=== PATIENT | female | born 1960 | race Caucasian/White ===

== ENCOUNTER 2019-09-19 10:10 | Inpatient (IN) | payer OTHER ==
[~2019-09-19] VITALS: Ht 175.3 cm; Wt 89.9 kg
--- NOTE | 2019-09-19 10:13 | NUR ---
[id number] c/o L sided headache and nausea and vomiting while in PE class. pt is aaox4, not in respiratory distress, hooked to monitor, kept rested and comfortable.
--- NOTE | 2019-09-19 10:49 | NUR ---
BLOOD DRAWN AND SENT TO LAB.
[2019-09-19] MEDS ORDERED: METOCLOPRAMIDE HCL 10 MG/2 ML VIAL ONE (10:54)
[2019-09-19 10:55] LABS: BASOPHILS % (AUTO) 0.5 % (0.0-2.0); EOSINOPHILS % (AUTO) 1.3 % (0.0-6.0); HEMATOCRIT 41 % (33-45); HEMOGLOBIN 13.9 g/dL (11.5-14.8); LYMPHOCYTES # (AUTO) 1.7 /CMM (0.8-4.8); LYMPHOCYTES % (AUTO) 27.6 % (20.0-44.0); MEAN CORPUSCULAR HGB CONC 34 g/dl (31.0-36.0); MEAN CORPUSCULAR VOLUME 93 fL (82-100); MONOCYTES # (AUTO) 0.3 /CMM (0.1-1.30); NEUTROPHILS # (AUTO) 4.1 /CMM (1.8-8.9); NEUTROPHILS % (AUTO) 65.6 % (43.0-81.0); PLATELET COUNT (AUTO) 285 /CMM (150-450); RED BLOOD CELL COUNT(AUTO) 4.44 MIL/uL (4.0-5.2); WHITE BLOOD COUNT (AUTO) 6.3 K/uL (4.3-11.0)
[2019-09-19] MEDS ORDERED: METOCLOPRAMIDE HCL 10 MG/2 ML VIAL IV ONE (11:00)
[2019-09-19] MEDS ORDERED: IV NS 0.9% 1,000 ML BAG IV ONE (11:00)
--- NOTE | 2019-09-19 11:00 | NUR ---
URINE SPECIMEN COLLECTED AND SENT TO LAB.
[2019-09-19 11:02] LABS: CALCIUM, SERUM 8.9 mg/dL (8.5-10.1); CREATININE 0.7 mg/dL (0.6-1.3); POTASSIUM 3.7 mmol/L (3.5-5.1)
[2019-09-19 11:05] LABS: APPEARANCE,URINE Clear (CLEAR); BILIRUBIN,URINE Negative (NEGATIVE); BLOOD, URINE Trace-intact Ery/uL (NEGATIVE); COLOR,URINE Yellow (YELLOW); KETONES,URINE Negative (NEGATIVE); LEUKOCYTE ESTERASE ,URINE Negative (NEGATIVE); NITRITE, URINE Negative (NEGATIVE); PROTEIN,URINE Negative (NEGATIVE); UGLUCOSE Negative (NEGATIVE); UROBILINOGEN,URINE 0.2 EU/dL (0.2)
[2019-09-19 11:08] LABS: ALBUMIN 3.9 g/dL (3.4-5.0); BILIRUBIN,TOTAL 0.2 mg/dL (0.2-1.0); TOTAL PROTEIN, SERUM 7.5 g/dL (6.4-8.2)
[2019-09-19 11:15] LABS: BACTERIA,URINE None seen /HPF (None Seen); RBC,URINE 0-2 /HPF (0-2); SQUAMOUS EPITHELIAL CELL,UR Few /HPF (None Seen); WBC,URINE 0-2 /HPF (0-3)
--- NOTE | 2019-09-19 11:18 | NUR ---
PT IS WHEELED TO CT SCAN VIA [facility].
[2019-09-19] MEDS ORDERED: IBUPROFEN 600 MG TABLET PO ONE ×2 (13:06→14:00)
[2019-09-19] MEDS ORDERED: ONDANSETRON HCL/PF 4 MG/2 ML VIAL ONE (13:06)
[2019-09-19] MEDS ORDERED: ONDANSETRON HCL/PF - ER 4 MG/2 ML VIAL IV ONE (14:00)
--- NOTE | 2019-09-19 15:09 | NUR ---
AT BEDSIDE FOR LUMBAR PUNCTURE TEST.
--- NOTE | 2019-09-19 15:20 | NUR ---
[facility] CALLED AND WILL SET UP PEER TO PEER.
--- NOTE | 2019-09-19 15:30 | NUR ---
CALLED NURSING SUP FOR TELE BED.
[2019-09-19 15:36] LABS: CSF GLUCOSE 54 mg/dL (40-70); CSF PROTEIN 45.9 mg/dL (15-45)
--- NOTE | 2019-09-19 15:54 | NUR ---
PAGED [facility].
[2019-09-19 16:00] VITALS: BP 117/78
[2019-09-19] MEDS ORDERED: MAG HYDROX/AL HYDROX/SIMETH 30 ML UDC PO PRN (16:30)
[2019-09-19] MEDS ORDERED: ONDANSETRON HCL/PF 4 MG/2 ML VIAL IVP PRN (16:30)
[2019-09-19] MEDS ORDERED: Z GUARD REMEDY 2 OZ OINT TP PRN (16:30)
[2019-09-19] MEDS ORDERED: MAGNESIUM HYDROXIDE 30 ML UDC PO PRN (16:30)
[2019-09-19] MEDS ORDERED: CLONIDINE HCL 0.1 MG TABLET PO PRN (16:30)
--- NOTE | 2019-09-19 16:51 | NUR ---
NURSING SUP GAVE [id number].
--- NOTE | 2019-09-19 17:01 | NUR ---
REPORT GIVEN TO RUBI OCONNELL FOR ALEJANDRO.
[2019-09-19 17:30] VITALS: BP 117/78
--- NOTE | 2019-09-19 17:30 | NUR ---
MS RN NOTES PATIENT ADMITTED FROM ER REPORT GIVEN BY JEFF VENEGAS. ALERT ORIENTED X 4. NO ACUTE DISTRESS NOTED. DENIED ANY PAIN AT THIS TIME. ORIENTED TO THE ROOM. NEEDS ATTENDED. SAFETY MEASURES IS PLACE. CALL LIGHT WITHIN REACH. WILL CONTINUE TO MONITOR ACCORDINGLY.
[2019-09-19] MEDS: IV NS 0.9% 1,000 ML IV PRN (18:41)
--- NOTE | 2019-09-19 19:00 | NUR ---
MS RN NOTES PATIENT IN BED ALERT ORIENTED X 4. NO ACUTE DISTRESS NOTED. BREATHING UNLABORED. NO SOB NOTED. NEEDS ATTENDED AND ANTICIPATED. KEPT CLEAN DRY AND COMFORTABLE. SAFETY MEASURES IN PLACE. CALL LIGHT WITHIN REACH. WILL ENDORSE TO NIGHT NURSE FOR CONTINUITY OF CARE
[2019-09-19 20:00] VITALS: BP 119/78
--- NOTE | 2019-09-19 20:00 | NUR ---
MS RN NOTES RECEIVED PATIENT AWAKE IN BED WITH NO DISTRESS NOTED. CALL LIGHT WITHIN REACH. AT BEDSIDE. NO C/O PAIN OR DISCOMFORT. PERIPHERAL LINE INTACT AND PATENT. ENCOURAGED USE OF CALL LIGHT FOR ASSISTANCE AND VERBALIZED GOOD UNDERSTANDING. BED IN LOW LOCK SETTING. ROOM FREE OF CUTTER AND BELONGINGS KEPT NEAR BEDSIDE. PATIENT VERBALIZED GOOD UNDERSTANDING. WILL CONTINUE TO MONITOR.
[2019-09-20 07:02] LABS: BASOPHILS % (AUTO) 0.7 % (0.0-2.0); EOSINOPHILS % (AUTO) 1.8 % (0.0-6.0); HEMATOCRIT 38 % (33-45); HEMOGLOBIN 13.1 g/dL (11.5-14.8); LYMPHOCYTES # (AUTO) 1.9 /CMM (0.8-4.8); LYMPHOCYTES % (AUTO) 33.5 % (20.0-44.0); MEAN CORPUSCULAR HGB CONC 35 g/dl (31.0-36.0); MEAN CORPUSCULAR VOLUME 91 fL (82-100); MONOCYTES # (AUTO) 0.3 /CMM (0.1-1.30); MONOCYTES % (AUTO) 5.9 % (2.0-12.0); NEUTROPHILS # (AUTO) 3.3 /CMM (1.8-8.9); NEUTROPHILS % (AUTO) 58.1 % (43.0-81.0); PLATELET COUNT (AUTO) 285 /CMM (150-450); RED BLOOD CELL COUNT(AUTO) 4.14 MIL/uL (4.0-5.2); WHITE BLOOD COUNT (AUTO) 5.6 K/uL (4.3-11.0)
--- NOTE | 2019-09-20 07:15 | NUR ---
RN OPENING NOTES RECEIVED PATIENT IN BED RESTING. A/OX4, ABLE TO MAKE NEEDS KNOWN. AMBULATORY WITH STEADY GAIT, AMBULATED TO THE RESTROOM BY HERSELF. NOT IN ANY FORM OF DISTRESS. NO SOB. DENIED PAIN OR DISCOMFORT AT THIS TIME. IV ACCESS INTACT AND PATENT. KEPT PATIENT SAFE AND COMFORTABLE. BED IN LOW/LOCKED PSOITION, SIDERAILS UPX2, CALLL IGHT IN REACH. WILL COMNT TO MONITTOR ACCORDINGLY.
[2019-09-20 07:16] LABS: CALCIUM, SERUM 8.1 mg/dL (8.5-10.1); CREATININE 0.8 mg/dL (0.6-1.3); PHOSPHORUS 3.8 mg/dL (2.5-4.9); POTASSIUM 3.9 mmol/L (3.5-5.1)
--- NOTE | 2019-09-20 07:17 | NUR ---
MS RN NOTES PATIENT ASLEEP IN BED WITH NO DISTRESS NOTED. CALL LIGHT WITHIN REACH. PERIPHERAL LINE INTACT AND PATENT. NO C/O PAIN OR DISCOMFORT. BED IN LOW LOCK SETTING. ROOM FREE OF CLUTTER AND BELONGINGS KEPT NEAR BEDSIDE. WILL ENDORSE TO ONCOMING SHIFT.
[2019-09-20 08:00] VITALS: BP 127/78
[2019-09-20] MEDS: IV NS 0.9% 1,000 ML IV PRN (10:10)
[2019-09-20] MEDS: ACETAMINOPHEN 325 MG TABLET PO PRN (10:36)
[2019-09-20 16:00] VITALS: BP 132/78
--- NOTE | 2019-09-20 19:10 | NUR ---
RN medsurg opening notes Pt is resting in bed comfortably. Pt is alert and orientedX4. Respiration is normal. No SOB. No S/S of distress noted. IV sites at RAC# 20 is clean, intact, patent and infusing well NS @ 75 ml/hr. Safety precautions is maintained. Bed at low position, brakes locked, side rails upX3 and call light is within reach. Will continue to monitor.
--- NOTE | 2019-09-20 19:33 | NUR ---
RN CLOSING NOTES PATIENT IN STABLE CONDITION. ALL NEEDS ATTENDED AND PROVIDED. ALL DUE MEDS GIVEN ORDERED. KEPT PATIENT SAFE AND COMFORTABLE. BED IN LOW/LOCKED POSITION, SIDERAILS UPX2. CALL LIGHT IN REACH. ENDORSED ACCORDINGLY.
[2019-09-20] MEDS: ASPIRIN 81 MG TAB.CHEW PO SCH (19:37)
[2019-09-20 20:00] VITALS: BP 139/81
[2019-09-20 20:37] VITALS: BP 139/81
[2019-09-21] MEDS: IV NS 0.9% 1,000 ML IV PRN (05:40)
--- NOTE | 2019-09-21 06:46 | NUR ---
RN medsurg closing notes Pt is resting in bed comfortably. Respiration is normal. No SOB. No S/S of distress noted. IV sites RAC# 20 is clean, intact, patent and infusing well NS @ 75 ml/hr. Routine med was given as ordered. Kept Pt clean, dry and comfortable. Safety precautions is maintained. Bed at low position, brakes locked, side rails upX3 and call light is within reach. Will endorse to morning nurse for ALEJANDRO.
--- NOTE | 2019-09-21 07:35 | NUR ---
MS/RN NOTE THE PATIENT IS RECEIVED IN BED. ALERT AND ORIENTED X4. IN ROOM AIR AND DENIES SOB. RESPIRATION REGULAR AND UNLABORED. DENIES PAIN. THE PATIENT IN NO APPARENT DISTRESS. RAC G 20 PATENT AND NS INFUSING AT 75ML/HR AND NO S/S INFILTRATION NOTED. BED LOW AND LOCKED. SIDE RAILS UP X2. CALL LIGHT WITHIN REACH. WILL CONTINUE TO MONITOR.
[2019-09-21 08:00] VITALS: BP 129/77
[2019-09-21] MEDS: ASPIRIN 81 MG TAB.CHEW PO SCH (08:36)
[2019-09-21] MEDS: ACETAMINOPHEN 325 MG TABLET PO PRN (08:36)
--- NOTE | 2019-09-21 16:56 | NUR ---
MS/RN NOTE THE PATIENT IS ALERT AND ORIENTED X4. IN ROOM AIR AND SATURATION IS AT 99%. DENIES SOB. RESPIRATION REGULAR AND UNLABORED. DENIES PAIN. THE PATIENT IS GIVEN DISCHARGE INSTRUCTIONS AND SHE VERBALIZED UNDERSTANDING. PER DR BARRIENTOS THE PATIENT TO TAKE ASPIRIN 81 MG QD AND ATORVASTATIN 40 MG. THE ORDERS ARE CALLED TO PHARMACY AND THE PATIENT IS MADE AWARE. THE PATIENT GOT PICKED UP Y (DARREN) AND LEFT THE HOSPITAL IN STABLE CONDITION.
[2019-09-21] MEDS ORDERED: ATORVASTATIN 40 MG TABLET PO SCH (22:00)
== END 2019-09-21 16:54 | disposition home or self-care (01) | DRG 72 ==
LOC: ER 10:15 → MED 17:28
PROVIDERS: ADMIT Internal Medicine; ATTEND Internal Medicine
DX: G93.40 Encephalopathy, unspecified (principal); R41.3 Other amnesia; Z82.49 Family history of ischemic heart disease and other diseases of the circulatory system; E66.9 Obesity, unspecified
CPT/HCPCS: 36415; 70450-TC; 70551-TC; 80048-TC; 80076-TC; 81000-TC; 83735-TC; 84100-TC; 85025-TC; 86694; 87070-TC; 87081-TC; 89051-TC; 95819-TC; A4216; G0378; J2405; J2765; J7030